=== PATIENT | female | born 1990 | race Caucasian/White ===

== ENCOUNTER 2021-11-25 07:02 | Inpatient (IN) | payer BC, OTHER ==
[~2021-11-25] VITALS: Ht 154.9 cm; Wt 81.6 kg
[2021-11-25] MEDS: PENICILLIN G POTASSIUM 2.5 MMU in DEXTROSE 5% WATER 50 ML IV SCH ×2 (04:08→19:44)
[2021-11-25] MEDS ORDERED: PREN1TAB23 PO (07:26)
[2021-11-25] MEDS ORDERED: MISOPROSTOL 200MCG TABLET VG NR (09:15)
[2021-11-25] MEDS ORDERED: NALOXONE HCL 0.4 MG/ML 1ML VIAL IM PRN (09:15)
[2021-11-25] MEDS ORDERED: METHYLERGONOVINE MALEATE 0.2 MG/ML IM PRN (09:15)
[2021-11-25] MEDS ORDERED: LIDOCAINE HCL 1% 10 MG/ML 10ML VIAL IJ SCH (09:15)
[2021-11-25] MEDS ORDERED: BUTORPHANOL TARTRATE 2 MG/ML VIAL IV PRN (09:15)
[2021-11-25] MEDS ORDERED: CARBOPROST TROMETHAMINE 250 MCG/ML AMPUL IM PRN (09:15)
[2021-11-25] MEDS: MISOPROSTOL 100MCG TABLET VG PRN ×3 (09:53→21:20)
[2021-11-25] MEDS: LACTATED RINGERS 1,000 ML IV SCH ×2 (09:53→17:08)
[2021-11-25] MEDS ORDERED: PENICILLIN G POTASSIUM 5 MMU in DEXT 5% WATER 100 ML IV NR (10:30)
[2021-11-25 11:04] LABS: BASOPHILS % 0.2 % (0.0-2.0); HEMATOCRIT. 34.4 % (36.0-48.0); HEMOGLOBIN. 11.9 g/dL (12.0-16.0); LYMPHOCYTES % 22.6 % (20.0-50.0); MEAN CORPUSCULAR HEMOGLOBIN 29.9 pg (28.0-32.0); MEAN CORPUSCULAR VOLUME 86.8 fL (81.0-99.0); MEAN PLATELET VOLUME 8.8 fl (7.4-10.4); MONOCYTES % 8.3 % (2.0-8.0); NEUTROPHILS % 67.9 % (40.0-76.0); PLATELET 224 x1000/uL (130-400); RED BLOOD CELL COUNT 3.97 mill/uL (4.2-5.4); RED CELL DISTRIBUTION WIDTH 15.3 % (11.6-14.6)
[2021-11-25 11:09] LABS: CLARITY URINE CLEAR (CLEAR); COLOR URINE YELLOW (YELLOW); KETONES URINE NEGATIVE (NEGATIVE); LEUKOCYTE ESTERASE URINE TRACE (NEGATIVE); NITRITE URINE NEGATIVE (NEGATIVE); OCCULT BLOOD URINE NEGATIVE (NEGATIVE); PROTEIN URINE NEGATIVE (NEGATIVE); SPECIFIC GRAVITY URINE 1.018 (1.005-1.030)
[2021-11-25 11:16] LABS: INR 0.9; PARTIAL THROMBOPLASTIN TIME 30.4 sec (23.4-31.0); PROTHROMBIN TIME 9.9 sec (9.6-11.0)
[2021-11-25 11:20] LABS: CHLORIDE 108 mEq/L (98-107)
[2021-11-25 11:36] LABS: *AMPHETAMINES SCREEN URINE NEGATIVE (NEGATIVE); *BARBITURATES SCREEN URINE NEGATIVE (NEGATIVE); *BENZODIAZEPINES SCREEN URINE NEGATIVE (NEGATIVE); *COCAINE SCREEN URINE NEGATIVE (NEGATIVE); CANNABINOID URINE SCREEN NEGATIVE (NEGATIVE); METHADONE URINE SCREEN NEGATIVE (NEGATIVE); OPIATES URINE SCREEN NEGATIVE (NEGATIVE); PHENCYCLIDINE URINE SCREEN NEGATIVE (NEGATIVE)
[2021-11-25 14:32] LABS: HEPATITIS B SURFACE ANTIGEN NEGATIVE
[2021-11-26] MEDS: PENICILLIN G POTASSIUM 2.5 MMU in DEXTROSE 5% WATER 50 ML IV SCH ×6 (00:03→22:00)
[2021-11-26] MEDS: LACTATED RINGERS 1,000 ML IV SCH ×5 (00:11→21:07)
[2021-11-26] MEDS: MISOPROSTOL 100MCG TABLET VG PRN (01:35)
[2021-11-26] MEDS ORDERED: ACETAMINOPHEN 325MG TABLET PO NR (02:45)
[2021-11-26] MEDS: DEXT 5%/LACTATED RINGERS 1,000 ML IV SCH ×2 (04:10→06:53)
[2021-11-26] MEDS ORDERED: DEXT 5%/LR + PITOCIN 20UNITS/L 1,000 ML IV SCH (06:15)
[2021-11-26] MEDS: DEXT 5%/LR + PITOCIN 20UNITS/L 1,000 ML IV SCH (06:35)
[2021-11-26] MEDS ORDERED: ACETAMINOPHEN 500MG TABLET PO NR (07:00)
[2021-11-26] MEDS ORDERED: ROPIVACAINE HCL/PF EPIDURAL 200 ML EPI SCH (09:30)
[2021-11-26] MEDS ORDERED: ROPIVACAINE HCL/PF EPIDURAL 200 ML EPI ONE (09:42)
[2021-11-26] MEDS ORDERED: FENTANYL CITRATE/PF 50MCG/ML 2ML VIAL ONE ×2 (17:36→22:15)
[2021-11-27] MEDS: PENICILLIN G POTASSIUM 2.5 MMU in DEXTROSE 5% WATER 50 ML IV SCH ×2 (02:10→06:16)
[2021-11-27] MEDS ORDERED: FENTANYL CITRATE/PF 50MCG/ML 2ML VIAL ONE ×2 (02:40→10:07)
[2021-11-27] MEDS: DEXT 5%/LR + PITOCIN 20UNITS/L 1,000 ML IV SCH ×3 (05:06→20:52)
[2021-11-27] MEDS: LACTATED RINGERS 1,000 ML IV SCH (09:18)
[2021-11-27] MEDS ORDERED: OXYTOCIN 10 UNITS/ML 1ML ONE (10:07)
[2021-11-27] MEDS ORDERED: MORPHINE SULFATE/PF 1MG/ML 10ML AMP ONE (10:07)
[2021-11-27] MEDS ORDERED: CEFAZOLIN SODIUM 1000MG/VIAL ONE (10:07)
[2021-11-27] MEDS ORDERED: ONDANSETRON HCL 4MG/2ML INJ ONE (10:08)
[2021-11-27] MEDS ORDERED: LIDOCAINE HCL/PF 2% 20MG/ML 5 ML/VIAL ONE (11:41)
[2021-11-27] MEDS ORDERED: DIPHENHYDRAMINE 50MG/ML VIAL ONE (11:52)
[2021-11-27] MEDS ORDERED: KETOROLAC 60MG/2ML VIAL IM ONE (12:04)
[2021-11-27] MEDS ORDERED: MIDAZOLAM HCL 2 MG/2 ML VIAL ONE (12:08)
[2021-11-27] MEDS ORDERED: PROPOFOL 200MG/20ML VIAL IV ONE (12:10)
[2021-11-27] MEDS ORDERED: LANOLIN OINT 7GM TUBE TOP PRN (12:45)
[2021-11-27] MEDS ORDERED: RHO(D) IMMUNE GLOBULIN 300 MCG/SYR IM PRN (12:45)
[2021-11-27] MEDS ORDERED: ONDANSETRON HCL 4MG/2ML INJ IV PRN (12:45)
[2021-11-27] MEDS ORDERED: HYDROCODONE/ACETAMINOPHEN 5/325MG TABLET PO PRN (12:45)
[2021-11-27] MEDS ORDERED: DIPHENHYDRAMINE 25MG CAPSULE PO PRN (12:45)
[2021-11-27] MEDS ORDERED: IBUPROFEN 400MG TABLET PO PRN (12:45)
[2021-11-27] MEDS ORDERED: DIPHENHYDRAMINE 50MG/ML VIAL IV PRN (13:00)
[2021-11-27] MEDS ORDERED: BUTORPHANOL TARTRATE 2 MG/ML VIAL IV PRN ×2 (13:00→13:15)
[2021-11-27] MEDS ORDERED: NALOXONE HCL 0.4MG/ML VIAL IV PRN (13:00)
[2021-11-27] MEDS ORDERED: NALOXONE HCL 0.4 MG/ML 1ML VIAL IV PRN (13:00)
[2021-11-27 15:00] VITALS: BP 96/57
[2021-11-27 15:30] VITALS: BP 96/57
[2021-11-27 19:50] VITALS: BP 92/54
[2021-11-27] MEDS ORDERED: DOCUSATE SODIUM 100MG CAPSULE PO SCH (21:00)
[2021-11-27] MEDS: KETOROLAC 30MG/ML VIAL IV SCH (23:35)
[2021-11-28 00:25] VITALS: BP 101/61
[2021-11-28] MEDS: LACTATED RINGERS 1,000 ML IV SCH (04:19)
[2021-11-28 05:00] VITALS: BP 96/59
[2021-11-28] MEDS: KETOROLAC 30MG/ML VIAL IV SCH (05:06)
[2021-11-28] MEDS ORDERED: KETOROLAC 30MG/ML VIAL IV SCH (05:15)
[2021-11-28 08:00] VITALS: BP 102/54
[2021-11-28 08:43] LABS: BASOPHILS % 0.2 % (0.0-2.0); EOSINOPHILS % 0.7 % (0.0-5.0); HEMATOCRIT. 28.2 % (36.0-48.0); HEMOGLOBIN. 9.9 g/dL (12.0-16.0); LYMPHOCYTES % 11.8 % (20.0-50.0); MEAN CORPUSCULAR HEMOGLOBIN 30.5 pg (28.0-32.0); MEAN CORPUSCULAR VOLUME 87.1 fL (81.0-99.0); MEAN PLATELET VOLUME 8.5 fl (7.4-10.4); MONOCYTES % 9.1 % (2.0-8.0); NEUTROPHILS % 78.2 % (40.0-76.0); PLATELET 183 x1000/uL (130-400); RED BLOOD CELL COUNT 3.24 mill/uL (4.2-5.4); RED CELL DISTRIBUTION WIDTH 15.4 % (11.6-14.6)
[2021-11-28] MEDS ORDERED: PRENATAL VIT/FE FUMARATE/FA TABLET PO SCH (09:00)
[2021-11-28 12:00] VITALS: BP 101/66
[2021-11-28 16:03] VITALS: BP 91/54
[2021-11-28] MEDS ORDERED: TETANUS, DIPHTHERIA, PERTUSSIS VAC/PF 0.5ML (>10YR OLD) IM ONE (19:15)
[2021-11-28 19:30] VITALS: BP 109/63
[2021-11-28] MEDS: HYDROCODONE/ACETAMINOPHEN 5/325MG TABLET PO PRN (21:16)
[2021-11-29] MEDS: HYDROCODONE/ACETAMINOPHEN 5/325MG TABLET PO PRN (03:13)
[2021-11-29 04:00] VITALS: BP 102/68
[2021-11-29 08:00] VITALS: BP 108/64
[2021-11-29] MEDS ORDERED: IBUP-2028 PO (09:25)
[2021-11-29] MEDS ORDERED: FERR210T MT (09:25)
== END 2021-11-29 11:30 | disposition home or self-care (01) | DRG 787 ==
LOC: 8 EST LDRP 07:02 → OBSVTOIN 07:02 → 8EST 11-27 16:40
PROVIDERS: ADMIT Obstetrics & Gynecology; ATTEND Obstetrics & Gynecology
PROC: 10D00Z1 Extraction of Products of Conception, Low, Open Approach (ICD-10-PCS; principal; 2021-11-27)
DX: O48.0 Post-term pregnancy (principal); O41.03X0 Oligohydramnios, third trimester, not applicable or unspecified; O77.0 Labor and delivery complicated by meconium in amniotic fluid; O62.2 Other uterine inertia; Z20.822 Contact with and (suspected) exposure to COVID-19; O90.81 Anemia of the puerperium; D64.9 Anemia, unspecified; Z3A.40 40 weeks gestation of pregnancy; Z37.0 Single live birth
CPT/HCPCS: 36415; 76805; 76818; 80048; 80305; 81003; 85025; 86592; 86703; 86762; 86850; 86900; 87340; 87426; 88307; 90715; 99281; J0595; J0690; J1200; J1885; J2250; J2274; J2405; J2540; J2590; J2704; J2795; J3010; J3490; J7060; J7120